=== PATIENT | female | born 1970 | race Caucasian/White ===

== ENCOUNTER 2017-09-04 20:28 | Inpatient (IN) | payer SELFPAY ==
[2017-09-04 23:54] LABS: CKMB 1.1 ng/mL (0-6.6); Troponin I Less than 0.010 ng/mL (< 0.028)
[2017-09-04] MEDS ORDERED: Morphine 4 MG/ML VIAL ONE (23:54)
[2017-09-05] MEDS ORDERED: cefTRIAXone\\ROCEPHIN 1 GM VIAL ONE (01:39)
[2017-09-05] MEDS ORDERED: metroNIDAZOLE 250 MG TAB ONE (01:42)
[2017-09-05 02:36] VITALS: BMI 37.2
[2017-09-05] MEDS ORDERED: Acetaminophen 325 MG TAB PO PRN (02:37)
[2017-09-05] MEDS ORDERED: Dextrose 5 %-0.45 % NaCl 1,000 ML IV SCH (02:45)
[2017-09-05] MEDS: Ondansetron HCl/PF 4 MG/2 ML Vial SLOW IVP PRN ×2 (03:26→20:28)
[2017-09-05] MEDS ORDERED: Acetaminophen 650 MG Suppository PR PRN (07:10)
[2017-09-05] MEDS: Sodium Chloride 0.9% 1,000 ML IV SCH ×4 (07:47→21:03)
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
[2017-09-05] MEDS: Enoxaparin Sodium 40 MG/0.4 ML SYRINGE SC SCH (09:00)
[2017-09-05] MEDS: Nicotine 21 MG PATCH TD SCH (09:00)
[2017-09-05] MEDS: metroNIDAZOLE 500 MG in Premix Bag 1 BAG IVPB SCH ×2 (09:01→17:27)
--- NOTE | 2017-09-05 09:49 | RAD ---
PORTABLE AP CHEST: Date: 09/04/17 HISTORY: Upper abdominal pain. COMPARISON: 12/12/10. FINDINGS: Cardiac silhouette and pulmonary vasculature within normal limits for the portable technique of the franki son. The lungs are clear. There has been no interval change from the prior study. IMPRESSION: No acute cardiopulmonary process. POS: [facility]
[2017-09-05] MEDS ORDERED: Loperamide HCl 2 MG CAP PO SCH (17:30)
[2017-09-05] MEDS: Acetaminophen 325 MG TAB PO PRN (17:38)
[2017-09-06] MEDS: cefTRIAXone\\ROCEPHIN 1 GM in Sodium Chloride 0.9% 100 ML IVPB SCH (01:30)
[2017-09-06] MEDS ORDERED: cefTRIAXone\\ROCEPHIN 1 GM in Sodium Chloride 0.9% 100 ML IVPB SCH (02:00)
[2017-09-06] MEDS: metroNIDAZOLE 500 MG in Premix Bag 1 BAG IVPB SCH ×3 (02:06→18:28)
[2017-09-06 05:38] LABS: #Basophils 0.1 thou/uL (0.0-0.2); #Eosinphils 0.2 thou/uL (0.0-0.7); #Lymphocytes 1.6 thou/uL (1.20-3.40); #Monocytes 0.5 thou/uL (0.11-0.59); #Neutrophils 3.5 thou/uL (1.40-6.50); %Basophils 1.1 % (0.0-1.0); %Eosinophils 4.1 % (0.0-10.0); %Lymphocytes 26.6 % (21.0-51.0); %Monocytes 9.1 % (0.0-10.0); Hemoglobin 10.8 g/dL (12.0-16.0); Mean Corpuscular Hemoglobin 27.4 pg (27.0-31.0); Mean Corpuscular Volume 83.2 fL (78.0-98.0); Platelet Count 183 thou/uL (130-400); RBC Distribution Width 15.3 % (11.5-14.5); Red Blood Cell (RBC) Count 3.95 mill/uL (4.20-5.40)
[2017-09-06 05:46] LABS: Anion Gap 13 mmol/L (10-20); BUN (Urea Nitrogen) Less than 4 mg/dL (7.0-18.7); Calc. Creatinine Clearance 157 mL/min (70-130); Calcium 7.9 mg/dL (7.8-10.44); Carbon Dioxide 19 mmol/L (22-29); Chloride 112 mmol/L (98-107); Estimated GFR-MDRD Greater than 90; Glucose 103 mg/dL (70-105); Potassium 3.6 mmol/L (3.5-5.1); Sodium 140 mmol/L (136-145)
[2017-09-06] MEDS: Sodium Chloride 0.9% 1,000 ML IV SCH ×3 (07:16→22:16)
[2017-09-06 08:43] LABS: ALT (SGPT) 14 U/L (8-55); AST (SGOT) 12 U/L (5-34); Albumin 3.4 g/dL (3.5-5.0); Alkaline Phosphatase 71 U/L (40-150); Bilirubin, Direct 0.1 mg/dL (0.1-0.3); Bilirubin, Total 0.2 mg/dL (0.2-1.2); Protein, Total 5.9 g/dL (6.0-8.3)
[2017-09-06] MEDS: Acetaminophen 325 MG TAB PO PRN ×2 (08:51→16:13)
[2017-09-06] MEDS: Nicotine 21 MG PATCH TD SCH ×2 (08:52→09:45)
[2017-09-06] MEDS: Enoxaparin Sodium 40 MG/0.4 ML SYRINGE SC SCH (08:52)
--- NOTE | 2017-09-06 14:42 | PDOC.PN ---
- Subjective Encounter Start Date: 09/06/17 Encounter Start Time: 07:20 Pt seen for followup re: enterocolitis. Continues to have diarrhea. Reports multiple episodes of nausea and vomiting overnight. No fevers or chills. Reports RUQ pain. - Objective MAR Reviewed: Yes Vital Signs & Weight: Vital Signs (12 hours) Temp Pulse Resp BP BP Pulse Ox 09/06/17 11:59 98.5 F 77 20 97/59 L 95 09/06/17 07:52 98.8 F 79 20 96/47 L 98 09/06/17 07:40 98.8 F 79 20 09/06/17 04:00 98.0 F 82 18 112/52 L 99 Weight Admit Weight 210 lb 5 oz Weight 210 lb 5 oz I&O: 09/05/17 09/06/17 09/07/17 06:59 06:59 06:59 Intake Total 400 2566 1 Balance 400 2566 1 Result Diagrams: 09/06/17 05:21 09/06/17 05:21 Additional Labs: Labs reviewed by me Phys Exam - Physical Examination Obese HEENT: moist MMs, sclera anicteric, oral pharynx no lesions, 2+ tonsils Neck: no nodes, no JVD, supple, full ROM Respiratory: no wheezing, no rales, no rhonchi, clear to auscultation bilateral Cardiovascular: RRR, no rub S1, S2 Gastrointestinal: soft, positive bowel sounds distention, mild RUQ tenderness, no guarding or rigidity Neurological: moves all 4 limbs Psychiatric: normal affect, A&O x 3 Dx/Plan (1) Enterocolitis Code(s): K52.9 - NONINFECTIVE GASTROENTERITIS AND COLITIS, UNSPECIFIED Status : Acute Comment: stool culture pending, pt continues to be symptomatic continue antibiotics for now (2) Nausea and vomiting Code(s): R11.2 - NAUSEA WITH VOMITING, UNSPECIFIED Status: Acute Comment: PRN antiemetics (3) Diarrhea Code(s): R19.7 - DIARRHEA, UNSPECIFIED Status: Acute Comment: on PRN Imodium (4) Tobacco abuse Code(s): Z72.0 - TOBACCO USE Status: Chronic Comment: nicotine replacement therapy - Plan continue antibiotics, out of bed/ambulate * . Likely home later today or tomorrow Review of Systems - Review of Systems Constitutional: weakness. negative: fever, chills, sweats, malaise Respiratory: negative: Cough, Shortness of Breath, SOB with Excertion, Pleuritic Pain, Wheezing Cardiovascular: negative: chest pain, palpitations, orthopnea, paroxysmal nocturnal dyspnea, edema, light headedness Gastrointestinal: Nausea, Vomiting, Abdominal Pain, Diarrhea. negative: Constipation, Melena, Hematochezia Genitourinary: negative: Dysuria, Frequency, Incontinence, Hematuria, Retention Skin: negative: Rash, Lesions, Gopi, Bruising - Medications/Allergies Allergies/Adverse Reactions: Allergies Allergy/AdvReac Type Severity Reaction Status Date / Time latex Allergy Verified 09/05/17 03:14 Medications: Current Medications Acetaminophen (Tylenol) 650 mg PO Q4H PRN PRN Reason: Headache/Fever or Pain Last Admin: 09/06/17 08:51 Dose: 650 mg Acetaminophen (Tylenol) 650 mg MS Q4H PRN PRN Reason: Headache/Fever or Pain Enoxaparin Sodium (Lovenox) 40 mg SC 0900 [facility] Last Admin: 09/06/17 08:52 Dose: 40 mg Metronidazole 500 mg/ Device 100 mls @ 100 mls/hr IVPB 0200,1000,1800 [facility] Last Admin: 09/06/17 10:31 Dose: 100 mls Sodium Chloride (Normal Saline 0.9%) 1,000 mls @ 100 mls/hr IV .Q10H [facility] Last Admin: 09/06/17 08:55 Dose: 1,000 mls Ceftriaxone Sodium 1 gm/ (Sodium Chloride) 100 mls @ 200 mls/hr IVPB 0100 [facility] Last Admin: 09/06/17 01:30 Dose: 100 mls Loperamide HCl (Imodium) 2 mg PO PRN PRN PRN Reason: Diarrhea/Loose Stools Morphine Sulfate (Morphine) 2 mg SLOW IVP Q4H PRN PRN Reason: Pain Last Admin: 09/06/17 14:21 Dose: 2 mg Nicotine (Nicoderm Patch) 21 mg TD Q24HR [facility] Last Admin: 09/06/17 09:45 Dose: 21 mg Ondansetron HCl (Zofran) 4 mg SLOW IVP Q4H PRN PRN Reason: Nausea/Vomiting Last Admin: 09/05/17 20:28 Dose: 4 mg Ondansetron HCl (Zofran Odt) 4 mg SL Q4H PRN PRN Reason: Nausea/Vomiting Sodium Chloride (Flush - Normal Saline) 10 ml IVF Q12HR ANGY Last Admin: 09/06/17 08:52 Dose: Not Given Sodium Chloride (Flush - Normal Saline) 10 ml IVF PRN PRN PRN Reason: Saline Flush
[2017-09-06] MEDS: Ondansetron HCl/PF 4 MG/2 ML Vial SLOW IVP PRN (18:27)
[2017-09-06] MEDS: Loperamide HCl 2 MG CAP PO PRN (18:33)
[2017-09-07] MEDS: cefTRIAXone\\ROCEPHIN 1 GM in Sodium Chloride 0.9% 100 ML IVPB SCH (01:30)
[2017-09-07] MEDS: metroNIDAZOLE 500 MG in Premix Bag 1 BAG IVPB SCH ×3 (02:16→20:26)
[2017-09-07] MEDS: Nicotine 21 MG PATCH TD SCH (07:29)
[2017-09-07] MEDS: Enoxaparin Sodium 40 MG/0.4 ML SYRINGE SC SCH (07:30)
[2017-09-07] MEDS: Ondansetron ODT 4 MG TAB SL PRN ×3 (07:35→21:09)
[2017-09-07] MEDS: Sodium Chloride 0.9% 1,000 ML IV SCH ×2 (09:52→21:11)
[2017-09-07] MEDS: Acetaminophen 325 MG TAB PO PRN (09:57)
[2017-09-07 17:43] LABS: Acetaminophen Less than 6.0 mcg/mL (10.0-30.0); Alcohol Less than 10 mg/dL (Less than 10); Salicylate Less than 8.0 mg/dL (15.0-30.0)
[2017-09-07] MEDS: traMADol HCl 50 MG TAB PO PRN (20:32)
--- NOTE | 2017-09-07 23:01 | PDOC.PN ---
- Subjective Encounter Start Date: 09/07/17 Encounter Start Time: 19:00 Subjective: nsg notes rev elton ovn c/o persistent and progressive abd pain that was orig -: more localized and now is throughout her abd. intermittent and "waves" of -: pain. no prior sim issues. fhx of mother with "colitis" - Objective Vital Signs & Weight: Vital Signs (12 hours) Temp Pulse Resp BP BP Pulse Ox 09/07/17 20:00 98.3 F 69 16 09/07/17 19:37 98.3 F 16 114/55 L 96 09/07/17 16:00 99 F 63 16 118/61 100 09/07/17 14:00 98 F 73 22 H 133/67 97 Weight Admit Weight 210 lb 5 oz Weight 210 lb 5 oz I&O: 09/06/17 09/07/17 09/08/17 06:59 06:59 06:59 Intake Total 2566 1653 415.5 Balance 2566 1653 415.5 Result Diagrams: 09/06/17 05:21 09/06/17 05:21 Phys Exam - Physical Examination lying on the hospital bed HEENT: PERRLA, moist MMs Respiratory: no wheezing, no rales, no rhonchi, clear to auscultation bilateral Cardiovascular: RRR, no significant murmur, no rub Gastrointestinal: soft, positive bowel sounds ttp throughout all quadrants Musculoskeletal: no edema, pulses present Neurological: moves all 4 limbs Psychiatric: normal affect, A&O x 3 Dx/Plan - Plan cont current plan of care (1) Enterocolitis Code(s): K52.9 - NONINFECTIVE GASTROENTERITIS AND COLITIS, UNSPECIFIED Status : Acute Comment: stool culture pending, pt continues to be symptomatic continue antibiotics for now supportive mgmt r/o pancreatitis, repeat CMP does have persistent diarrhea (2) Nausea and vomiting Code(s): R11.2 - NAUSEA WITH VOMITING, UNSPECIFIED Status: Acute Comment: PRN antiemetics (3) Diarrhea Code(s): R19.7 - DIARRHEA, UNSPECIFIED Status: Acute Comment: on PRN Imodium (4) Tobacco abuse Code(s): Z72.0 - TOBACCO USE Status: Chronic Comment: nicotine replacement therapy Review of Systems - Medications/Allergies Allergies/Adverse Reactions: Allergies Allergy/AdvReac Type Severity Reaction Status Date / Time latex Allergy Verified 09/05/17 03:14 Medications: Current Medications Acetaminophen (Tylenol) 650 mg PO Q4H PRN PRN Reason: Headache/Fever or Pain Last Admin: 09/07/17 09:57 Dose: 650 mg Acetaminophen (Tylenol) 650 mg UT Q4H PRN PRN Reason: Headache/Fever or Pain Enoxaparin Sodium (Lovenox) 40 mg SC 0900 [facility] Last Admin: 09/07/17 07:30 Dose: 40 mg Metronidazole 500 mg/ Device 100 mls @ 100 mls/hr IVPB 0200,1000,1800 [facility] Last Admin: 09/07/17 20:26 Dose: 100 mls Sodium Chloride (Normal Saline 0.9%) 1,000 mls @ 100 mls/hr IV .Q10H [facility] Last Admin: 09/07/17 21:11 Dose: 1,000 mls Ceftriaxone Sodium 1 gm/ (Sodium Chloride) 100 mls @ 200 mls/hr IVPB 0100 [facility] Last Admin: 09/07/17 01:30 Dose: 100 mls Loperamide HCl (Imodium) 2 mg PO PRN PRN PRN Reason: Diarrhea/Loose Stools Last Admin: 09/06/17 18:33 Dose: 2 mg Morphine Sulfate (Morphine) 1 mg SLOW IVP Q4H PRN PRN Reason: Pain Last Admin: 09/07/17 21:08 Dose: 1 mg Nicotine (Nicoderm Patch) 21 mg TD Q24HR [facility] Last Admin: 09/07/17 07:29 Dose: 21 mg Ondansetron HCl (Zofran) 4 mg SLOW IVP Q4H PRN PRN Reason: Nausea/Vomiting Last Admin: 09/06/17 18:27 Dose: 4 mg Ondansetron HCl (Zofran Odt) 4 mg SL Q4H PRN PRN Reason: Nausea/Vomiting Last Admin: 09/07/17 21:09 Dose: 4 mg Sodium Chloride (Flush - Normal Saline) 10 ml IVF Q12HR [facility] Last Admin: 09/07/17 21:38 Dose: Not Given Sodium Chloride (Flush - Normal Saline) 10 ml IVF PRN PRN PRN Reason: Saline Flush Tramadol HCl (Ultram) 50 mg PO Q6H PRN PRN Reason: Pain Last Admin: 09/07/17 20:32 Dose: 50 mg
[2017-09-08] MEDS: cefTRIAXone\\ROCEPHIN 1 GM in Sodium Chloride 0.9% 100 ML IVPB SCH (01:05)
[2017-09-08] MEDS: metroNIDAZOLE 500 MG in Premix Bag 1 BAG IVPB SCH ×3 (01:46→17:43)
[2017-09-08] MEDS: Loperamide HCl 2 MG CAP PO PRN ×2 (05:08→13:50)
[2017-09-08 06:40] LABS: #Basophils 0.1 thou/uL (0.0-0.2); #Eosinphils 0.2 thou/uL (0.0-0.7); #Lymphocytes 1.9 thou/uL (1.20-3.40); #Monocytes 0.7 thou/uL (0.11-0.59); #Neutrophils 7.1 thou/uL (1.40-6.50); %Basophils 0.8 % (0.0-1.0); %Eosinophils 2.2 % (0.0-10.0); %Lymphocytes 18.9 % (21.0-51.0); %Monocytes 6.8 % (0.0-10.0); %Neutrophils 71.4 % (42.0-75.0); Hemoglobin 11.5 g/dL (12.0-16.0); Mean Corpuscular HGB CONC 33.9 g/dL (32.0-36.0); Mean Corpuscular Hemoglobin 28.1 pg (27.0-31.0); Mean Corpuscular Volume 82.7 fL (78.0-98.0); Mean Platelet Volume 8.1 fL (7.4-10.4); Platelet Count 204 thou/uL (130-400); RBC Distribution Width 14.9 % (11.5-14.5); Red Blood Cell (RBC) Count 4.11 mill/uL (4.20-5.40); White Blood Cell (WBC) Count 9.9 thou/uL (4.8-10.8)
[2017-09-08 07:02] LABS: ALT (SGPT) 22 U/L (8-55); AST (SGOT) 22 U/L (5-34); Albumin 3.5 g/dL (3.5-5.0); Alkaline Phosphatase 76 U/L (40-150); Anion Gap 11 mmol/L (10-20); BUN (Urea Nitrogen) 4 mg/dL (7.0-18.7); Bilirubin, Total 0.2 mg/dL (0.2-1.2); Calc. Creatinine Clearance 159 mL/min (70-130); Calcium 8.4 mg/dL (7.8-10.44); Carbon Dioxide 23 mmol/L (22-29); Chloride 109 mmol/L (98-107); Estimated GFR-MDRD Greater than 90; Globulin 2.6 g/dL (2.4-3.5); Glucose 95 mg/dL (70-105); Lipase 10 U/L (8-78); Potassium 3.5 mmol/L (3.5-5.1); Protein, Total 6.1 g/dL (6.0-8.3); Sodium 139 mmol/L (136-145)
[2017-09-08] MEDS: Enoxaparin Sodium 40 MG/0.4 ML SYRINGE SC SCH (08:47)
[2017-09-08] MEDS: Nicotine 21 MG PATCH TD SCH (08:49)
[2017-09-08] MEDS: traMADol HCl 50 MG TAB PO PRN ×3 (08:51→20:52)
[2017-09-08] MEDS: Sodium Chloride 0.9% 1,000 ML IV SCH ×3 (10:07→22:36)
[2017-09-08] MEDS: Ketorolac Tromethamine 30 MG/ML VIAL IVP PRN ×3 (10:08→22:39)
--- NOTE | 2017-09-08 14:21 | PDOC.PN ---
- Subjective Encounter Start Date: 09/08/17 Encounter Start Time: 07:20 Pt seen for followup re: enterocolitis. Reports ongoing nausea and vomiting, also reports diarrhea. No fevers or chills. - Objective MAR Reviewed: Yes Vital Signs & Weight: Vital Signs (12 hours) Temp Pulse Resp BP Pulse Ox 09/08/17 12:00 97.9 F 69 20 116/70 96 09/08/17 10:00 98.8 F 67 16 98 09/08/17 08:00 98.8 F 67 16 103/59 L 98 Weight Admit Weight 210 lb 5 oz Weight 210 lb 5 oz I&O: 09/07/17 09/08/17 09/09/17 06:59 06:59 06:59 Intake Total 1653 966.5 7 Balance 1653 966.5 7 Result Diagrams: 09/08/17 06:33 09/08/17 06:33 Additional Labs: Labs reviewed by me Phys Exam - Physical Examination Obese HEENT: moist MMs, sclera anicteric, oral pharynx no lesions, 2+ tonsils Neck: no nodes, no JVD, supple, full ROM Respiratory: no wheezing, no rales, no rhonchi, clear to auscultation bilateral Cardiovascular: RRR, no rub Gastrointestinal: soft, non-tender, no distention, positive bowel sounds Neurological: moves all 4 limbs Psychiatric: normal affect, A&O x 3 Dx/Plan (1) Enterocolitis Code(s): K52.9 - NONINFECTIVE GASTROENTERITIS AND COLITIS, UNSPECIFIED Status : Acute Comment: Pt continues to be symptomatic with ongoing nausea, vomiting and diarrhea, unable to tolerate oral diet or medications, needs ongoing IV fluids for hydration. Will change patient's status to inpatient. (2) Nausea and vomiting Code(s): R11.2 - NAUSEA WITH VOMITING, UNSPECIFIED Status: Acute Comment: PRN zofran IV (3) Diarrhea Code(s): R19.7 - DIARRHEA, UNSPECIFIED Status: Acute Comment: continue PRN Imodium (4) Tobacco abuse Code(s): Z72.0 - TOBACCO USE Status: Chronic Comment: on nicotine replacement therapy - Plan * . Review of Systems - Review of Systems Constitutional: negative: fever, chills, sweats, weakness, malaise Respiratory: negative: Cough, Dry, Shortness of Breath, Hemoptysis, SOB with Excertion, Pleuritic Pain, Sputum, Wheezing Cardiovascular: negative: chest pain, palpitations, orthopnea, paroxysmal nocturnal dyspnea, edema, light headedness Gastrointestinal: Nausea, Vomiting, Abdominal Pain, Diarrhea. negative: Constipation, Melena, Hematochezia Genitourinary: negative: Dysuria, Frequency, Incontinence, Hematuria, Retention Skin: negative: Rash, Lesions, Gopi, Bruising - Medications/Allergies Allergies/Adverse Reactions: Allergies Allergy/AdvReac Type Severity Reaction Status Date / Time latex Allergy Verified 09/05/17 03:14 Medications: Current Medications Acetaminophen (Tylenol) 650 mg PO Q4H PRN PRN Reason: Headache/Fever or Pain Last Admin: 09/07/17 09:57 Dose: 650 mg Acetaminophen (Tylenol) 650 mg CO Q4H PRN PRN Reason: Headache/Fever or Pain Enoxaparin Sodium (Lovenox) 40 mg SC 0900 [facility] Last Admin: 09/08/17 08:47 Dose: 40 mg Metronidazole 500 mg/ Device 100 mls @ 100 mls/hr IVPB 0200,1000,1800 [facility] Last Admin: 09/08/17 10:27 Dose: 100 mls Sodium Chloride (Normal Saline 0.9%) 1,000 mls @ 100 mls/hr IV .Q10H [facility] Last Admin: 09/08/17 10:07 Dose: 1,000 mls Ceftriaxone Sodium 1 gm/ (Sodium Chloride) 100 mls @ 200 mls/hr IVPB 0100 [facility] Last Admin: 09/08/17 01:05 Dose: 100 mls Ketorolac Tromethamine (Toradol) 15 mg IVP Q6H PRN PRN Reason: Pain Stop: 09/13/17 08:24 Last Admin: 09/08/17 10:08 Dose: 15 mg Loperamide HCl (Imodium) 2 mg PO PRN PRN PRN Reason: Diarrhea/Loose Stools Last Admin: 09/08/17 13:50 Dose: 2 mg Nicotine (Nicoderm Patch) 21 mg TD Q24HR [facility] Last Admin: 09/08/17 08:49 Dose: 21 mg Ondansetron HCl (Zofran) 4 mg SLOW IVP Q4H PRN PRN Reason: Nausea/Vomiting Last Admin: 09/06/17 18:27 Dose: 4 mg Ondansetron HCl (Zofran Odt) 4 mg SL Q4H PRN PRN Reason: Nausea/Vomiting Last Admin: 09/07/17 21:09 Dose: 4 mg Sodium Chloride (Flush - Normal Saline) 10 ml IVF Q12HR ANGY Last Admin: 09/08/17 08:53 Dose: Not Given Sodium Chloride (Flush - Normal Saline) 10 ml IVF PRN PRN PRN Reason: Saline Flush Tramadol HCl (Ultram) 50 mg PO Q6H PRN PRN Reason: Pain Last Admin: 09/08/17 08:51 Dose: 50 mg
[2017-09-08] MEDS: Dicyclomine 10 MG CAP PO PRN (20:01)
[2017-09-08] MEDS: Ondansetron ODT 4 MG TAB SL PRN (20:05)
[2017-09-08] MEDS: Melatonin 3 MG TAB PO PRN (20:53)
[2017-09-08] MEDS ORDERED: Mag-Al 1200 mg/1200 mg/30 ML UDCUP PO PRN (21:40)
[2017-09-09] MEDS: cefTRIAXone\\ROCEPHIN 1 GM in Sodium Chloride 0.9% 100 ML IVPB SCH (00:25)
--- NOTE | 2017-09-09 01:11 | CON ---
DATE OF CONSULTATION: 09/08/2017 REASON FOR CONSULTATION: Abdominal pain and diarrhea. HISTORY OF PRESENT ILLNESS: Ms. Zuniga is a 46-year-old female who was admitted to the hospital on the with abdominal pain and diarrhea. She states she became ill back about a week ago with abrupt onset of nausea and some vomiting and then diarrhea. Initially, diarrhea was not that loose, but the n by this Monday, it became very loose and was watery. It was without any bleeding. She had quite a bit of crampy abdominal pain with this, initially across the upper abdomen and then throughout the w hole periumbilical area. She is still going about 3-4 times a day. She has no blood in her stools. She had no blood in her emesis. She has not really vomited anymore. She had some chills and low-gr bj temperature at home, but no overt fever. She denies any sick contacts, any recent antibiotics. She has not traveled recently. She specifically denies eating bagged salads or any recent fresh frui ts, but again it was about a week ago that she got sick. She denies any symptoms like this in the ri st. She denies any recent use of pain medications or problems with withdrawing from pain medicines. REVIEW OF SYSTEMS: Negative for rashes, myalgias, and arthralgias. Negative for chronic GI illnesse s. Negative for melena, hematochezia, hematemesis, dysphagia, odynophagia, weight loss. Respiratory , cardiac, , neurologic review of systems are all negative. PAST MEDICAL HISTORY: History of depression and bipolar. PAST SURGICAL HISTORY: Right nephrectomy for nephrolithiasis, bulla removed from the face, tubal lig ation. SOCIAL HISTORY: The patient smokes half pack of cigarettes a day. She does not drink alcohol. She denies drug use. 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 FAMILY HISTORY: Negative for coronary disease, colorectal cancer, or inflammatory bowel disease. ALLERGIES: LATEX. MEDICATIONS AT HOME: Seroquel. PRESENT MEDICATIONS HERE IN THE HOSPITAL: Tylenol, Rocephin, levofloxacin, Toradol, Imodium, melaton in, Flagyl, NicoDerm, Zofran, normal saline at 100, tramadol. PHYSICAL EXAMINATION: GENERAL: She is sitting in bed. She is very pleasant. VITAL SIGNS: Temperature is 98.4, pulse 68, blood pressure 125/67. HEENT: Mucous membranes are pink and moist. She is little bit overweight. Conjunctivae and sclerae are clear. She has got no oral ulcers. She is missing a few teeth. NECK: Supple without any adenopathy. LUNGS: Clear. HEART: Regular rate and rhythm. ABDOMEN: Soft and nontender without rebound or guarding. Slightly protuberant and she has got some extra pannus on her, but it is nontender and it is not tight. EXTREMITIES: No clubbing, cyanosis, or edema. SKIN: Without rash or lesions. There are no sores. LABORATORY DATA: White count was 14.3 on presentation on , is 9.9 today; hemoglobin is 11.5, pamela telet count is 204. Sodium 139 with a BUN and creatinine of 4 and 0.68. It was 12 and 0.76 on admis saray. Potassium is 3.5. Liver function tests are normal with an albumin of 3.5, AST and ALT of 22 a nd 22, lipase is 10. test was negative on 09/04/2017. Urine showed trace blood on admissi on. Plasma alcohol, acetaminophen, and salicylates are all negative on admission. IMAGING: Thus far, a CAT scan of the abdomen and pelvis on 09/04/2017 was negative except for some m ild thickening of distal gastric antrum, small focal fatty infiltration, nonspecific fluid distention with looped small bowel consistent with enteritis, and right nephrectomy. Ultrasound of the abdomen the same day showed normal gallbladder and fatty liver. ASSESSMENT: Ms. Zuniga sounds like she had acute gastritis with abrupt onset nausea, vomiting, watery diarrhea and several other patients admitted to the hospital most recently. Stool cultures have been negative. One consideration would be Cyclospora, as there has been an outbreak of this in [facility]. RECOMMENDATIONS: 1. Continue liquid diet. 2. Continue hydration. 3. I think tomorrow her antibiotics can be discontinued if she is growing nothing in her cultures an d she will have three days of antibiotics at that time. Additionally, the Flagyl can lead to more cr amping abdominal discomfort in some patients. We would continue to support with IV fluids, advance d iet as tolerated avoiding lactose depending on how she does.
[2017-09-09] MEDS: metroNIDAZOLE 500 MG in Premix Bag 1 BAG IVPB SCH (01:53)
[2017-09-09] MEDS: Acetaminophen 325 MG TAB PO PRN ×2 (01:58→23:05)
[2017-09-09] MEDS: traMADol HCl 50 MG TAB PO PRN ×3 (03:09→17:40)
[2017-09-09] MEDS: Ketorolac Tromethamine 30 MG/ML VIAL IVP PRN ×3 (07:20→20:21)
[2017-09-09] MEDS: Enoxaparin Sodium 40 MG/0.4 ML SYRINGE SC SCH (07:24)
[2017-09-09] MEDS: Sodium Chloride 0.9% 1,000 ML IV SCH ×2 (10:43→20:28)
--- NOTE | 2017-09-09 12:37 | EKG ---
Test Reason : ABD PAIN Blood Pressure : / mmHG Vent. Rate : 091 BPM Atrial Rate : 091 BPM P-R Int : 158 ms QRS Dur : 080 ms QT Int : 352 ms P-R-T Axes : 030 011 016 degrees QTc Int : 432 ms Normal sinus rhythm Low voltage QRS Cannot rule out Anterior infarct , age undetermined Abnormal ECG Confirmed by COLETTE WELLS DO ([id number]), editor greeting card JANES MEAD ([id number]) on 09/09/2017 12:36:50 PM Referred By: PRISCILLA Confirmed By:COLETTE WELLS DO
[2017-09-09] MEDS: Dicyclomine 10 MG CAP PO PRN (12:51)
--- NOTE | 2017-09-09 14:08 | PDOC.PN ---
- Subjective Encounter Start Date: 09/09/17 Encounter Start Time: 07:20 Pt seen for followup re: enterocolitis. Abdo pain better. Still has nausea, vomiting and diarrhea. - Objective MAR Reviewed: Yes Vital Signs & Weight: Vital Signs (12 hours) Temp Pulse Resp BP BP Pulse Ox 09/09/17 12:00 98.0 F 69 16 121/60 94 L 09/09/17 08:00 97.9 F 64 16 119/66 94 L 09/09/17 05:27 97 09/09/17 03:29 97.9 F 64 12 122/58 L 97 Weight Admit Weight 210 lb 5 oz Weight 210 lb 5 oz I&O: 09/08/17 09/09/17 09/10/17 06:59 06:59 06:59 Intake Total 966.5 3337 Balance 966.5 3337 Result Diagrams: 09/08/17 06:33 09/08/17 06:33 Additional Labs: Labs reviewed by me Phys Exam - Physical Examination Obesity HEENT: moist MMs, sclera anicteric, oral pharynx no lesions, 2+ tonsils Neck: no nodes, no JVD, supple, full ROM Respiratory: no wheezing, no rales, no rhonchi, clear to auscultation bilateral Cardiovascular: RRR, no rub S1, s2 Gastrointestinal: soft, non-tender, positive bowel sounds Neurological: moves all 4 limbs Psychiatric: normal affect, A&O x 3 Dx/Plan (1) Enterocolitis Code(s): K52.9 - NONINFECTIVE GASTROENTERITIS AND COLITIS, UNSPECIFIED Status : Acute Comment: Pt mildly improved today, needs ongoing IV fluids for hydration. Will discontinue antibiotics. (2) Nausea and vomiting Code(s): R11.2 - NAUSEA WITH VOMITING, UNSPECIFIED Status: Acute Comment: continue PRN zofran IV (3) Diarrhea Code(s): R19.7 - DIARRHEA, UNSPECIFIED Status: Acute Comment: continue PRN Imodium (4) Tobacco abuse Code(s): Z72.0 - TOBACCO USE Status: Chronic Comment: continue nicotine patch - Plan * . Review of Systems - Review of Systems Constitutional: negative: fever, chills, sweats, weakness, malaise Cardiovascular: negative: chest pain, palpitations, orthopnea, paroxysmal nocturnal dyspnea, edema, light headedness Gastrointestinal: Nausea, Vomiting, Abdominal Pain, Diarrhea. negative: Constipation, Melena, Hematochezia Genitourinary: negative: Dysuria, Frequency, Incontinence, Hematuria, Retention Musculoskeletal: negative: Neck Pain, Shoulder Pain, Arm Pain, Back Pain, Hand Pain, Leg Pain, Foot Pain - Medications/Allergies Allergies/Adverse Reactions: Allergies Allergy/AdvReac Type Severity Reaction Status Date / Time latex Allergy Verified 09/05/17 03:14 Medications: Current Medications Acetaminophen (Tylenol) 650 mg PO Q4H PRN PRN Reason: Headache/Fever or Pain Last Admin: 09/09/17 01:58 Dose: 650 mg Acetaminophen (Tylenol) 650 mg MO Q4H PRN PRN Reason: Headache/Fever or Pain Al Hydroxide/Mg Hydroxide (Maalox) 30 ml PO Q6H PRN PRN Reason: Heartburn or Indigestion Dicyclomine HCl (Bentyl) 10 mg PO QIDPRN PRN PRN Reason: GI Cramping Last Admin: 09/09/17 12:51 Dose: 10 mg Enoxaparin Sodium (Lovenox) 40 mg SC 0900 [facility] Last Admin: 09/09/17 07:24 Dose: 40 mg Sodium Chloride (Normal Saline 0.9%) 1,000 mls @ 100 mls/hr IV .Q10H [facility] Last Admin: 09/09/17 10:43 Dose: 1,000 mls Ketorolac Tromethamine (Toradol) 15 mg IVP Q6H PRN PRN Reason: Pain Stop: 09/13/17 08:24 Last Admin: 09/09/17 07:20 Dose: 15 mg Loperamide HCl (Imodium) 2 mg PO PRN PRN PRN Reason: Diarrhea/Loose Stools Last Admin: 09/08/17 13:50 Dose: 2 mg Melatonin (Melatonin) 3 mg PO HS PRN PRN Reason: Insomnia Last Admin: 09/08/17 20:53 Dose: 3 mg Nicotine (Nicoderm Patch) 21 mg TD Q24HR ANGY Last Admin: 09/08/17 08:49 Dose: 21 mg Ondansetron HCl (Zofran) 4 mg SLOW IVP Q4H PRN PRN Reason: Nausea/Vomiting Last Admin: 09/06/17 18:27 Dose: 4 mg Ondansetron HCl (Zofran Odt) 4 mg SL Q4H PRN PRN Reason: Nausea/Vomiting Last Admin: 09/08/17 20:05 Dose: 4 mg Sodium Chloride (Flush - Normal Saline) 10 ml IVF Q12HR ANGY Last Admin: 09/09/17 07:20 Dose: 10 ml Sodium Chloride (Flush - Normal Saline) 10 ml IVF PRN PRN PRN Reason: Saline Flush Tramadol HCl (Ultram) 50 mg PO Q6H PRN PRN Reason: Pain Last Admin: 09/09/17 09:58 Dose: 50 mg
[2017-09-09] MEDS: Nicotine 21 MG PATCH TD SCH (14:36)
[2017-09-09] MEDS: Ondansetron ODT 4 MG TAB SL PRN (18:16)
--- NOTE | 2017-09-09 19:34 | PRG ---
DATE OF SERVICE: 09/09/2017 SUBJECTIVE: Ms. Zuniga is no longer having vomiting. She had 1 loose stool today. She still complain s of abdominal pain. She tried the Bentyl last night, she took it again and she seems to be do ing fine with that. MEDICATIONS: Tylenol, Maalox, Lovenox, Toradol, Imodium, Nicoderm patch, Zofran. PHYSICAL EXAMINATION: VITAL SIGNS: Temperature is 98, pulse 69, blood pressure is 121/61, respirations 16. ABDOMEN: Soft and nontender. There is no rebound or guarding. LABORATORY STUDIES: No labs today. Final stool culture, moderate normal kaykay, C. difficile, negati ve Campylobacter, Shiga negative. ASSESSMENT: Diarrheal illness. Agree with stopping metronidazole and Rocephin as her cultures have been negative and she has received several days of antibiotics now. We will try to manage with the a ntispasmodics for pain. RECOMMENDATIONS: We will check stool for cyclospora if continues to have loose stool, but she seems to be improving. We can advance diet as tolerated. We will follow along with you.
[2017-09-09] MEDS: Loperamide HCl 2 MG CAP PO PRN (20:22)
[2017-09-09] MEDS: Melatonin 3 MG TAB PO PRN (20:22)
[2017-09-10] MEDS: traMADol HCl 50 MG TAB PO PRN ×4 (00:18→19:32)
[2017-09-10] MEDS: Ketorolac Tromethamine 30 MG/ML VIAL IVP PRN ×4 (02:41→20:23)
[2017-09-10] MEDS: Sodium Chloride 0.9% 1,000 ML IV SCH ×2 (06:19→20:06)
[2017-09-10] MEDS: Nicotine 21 MG PATCH TD SCH ×2 (08:11→18:34)
[2017-09-10] MEDS: Enoxaparin Sodium 40 MG/0.4 ML SYRINGE SC SCH (08:16)
[2017-09-10] MEDS: Ondansetron ODT 4 MG TAB SL PRN (08:45)
[2017-09-10 08:54] LABS: #Basophils 0.1 thou/uL (0.0-0.2); #Eosinphils 0.3 thou/uL (0.0-0.7); #Lymphocytes 2.5 thou/uL (1.20-3.40); #Monocytes 0.5 thou/uL (0.11-0.59); #Neutrophils 4.5 thou/uL (1.40-6.50); %Basophils 1.1 % (0.0-1.0); %Eosinophils 3.9 % (0.0-10.0); %Lymphocytes 31.8 % (21.0-51.0); %Monocytes 6.5 % (0.0-10.0); %Neutrophils 56.8 % (42.0-75.0); Hemoglobin 11.3 g/dL (12.0-16.0); Mean Corpuscular HGB CONC 33.2 g/dL (32.0-36.0); Mean Corpuscular Hemoglobin 27.8 pg (27.0-31.0); Mean Corpuscular Volume 83.8 fL (78.0-98.0); Mean Platelet Volume 8.5 fL (7.4-10.4); Platelet Count 214 thou/uL (130-400); RBC Distribution Width 15.2 % (11.5-14.5); Red Blood Cell (RBC) Count 4.08 mill/uL (4.20-5.40); White Blood Cell (WBC) Count 7.9 thou/uL (4.8-10.8)
[2017-09-10 09:04] LABS: Anion Gap 9 mmol/L (10-20); BUN (Urea Nitrogen) 4 mg/dL (7.0-18.7); Calc. Creatinine Clearance 148 mL/min (70-130); Calcium 8.4 mg/dL (7.8-10.44); Carbon Dioxide 24 mmol/L (22-29); Chloride 109 mmol/L (98-107); Estimated GFR-MDRD 87; Glucose 113 mg/dL (70-105); Potassium 3.4 mmol/L (3.5-5.1); Sodium 139 mmol/L (136-145)
[2017-09-10] MEDS ORDERED: Potassium Chloride 20 MEQ TAB PO SCH (11:00)
[2017-09-10] MEDS: Ondansetron HCl/PF 4 MG/2 ML Vial SLOW IVP PRN (12:31)
[2017-09-10] MEDS: Dicyclomine 10 MG CAP PO PRN (16:10)
--- NOTE | 2017-09-10 16:37 | PDOC.PN ---
- Subjective Encounter Start Date: 09/10/17 Encounter Start Time: 10:00 Pt seen for followup re: enteroolitis. Reports improement in terms of abdo pain. Nausea better, but still present. Vomiting + - Objective MAR Reviewed: Yes Vital Signs & Weight: Vital Signs (12 hours) Temp Pulse Resp BP Pulse Ox 09/10/17 16:00 98.5 F 67 119/65 94 L 09/10/17 13:09 98.7 F 75 18 119/78 94 L 09/10/17 08:00 97.8 F 72 16 127/75 95 Weight Admit Weight 210 lb 5 oz Weight 210 lb 5 oz I&O: 09/09/17 09/10/17 09/11/17 06:59 06:59 06:59 Intake Total 3337 3840 Balance 3337 3840 Result Diagrams: 09/10/17 08:35 09/10/17 08:35 Additional Labs: Labs reviewed by me Phys Exam - Physical Examination Constitutional: NAD HEENT: moist MMs, sclera anicteric, oral pharynx no lesions, 2+ tonsils Neck: no nodes, no JVD, supple, full ROM Respiratory: no wheezing, no rales, no rhonchi, clear to auscultation bilateral Cardiovascular: RRR, no rub S1, S2 Gastrointestinal: soft, positive bowel sounds distention, mild epigastric tenderness, no guarding or rigidity Neurological: moves all 4 limbs Psychiatric: normal affect, A&O x 3 Dx/Plan (1) Enterocolitis Code(s): K52.9 - NONINFECTIVE GASTROENTERITIS AND COLITIS, UNSPECIFIED Status : Acute Comment: Antibiotics were discontinued yesterday. Clinically improving. Likely home 24-48 hours (2) Nausea and vomiting Code(s): R11.2 - NAUSEA WITH VOMITING, UNSPECIFIED Status: Acute Comment: on PRN zofran IV (3) Diarrhea Code(s): R19.7 - DIARRHEA, UNSPECIFIED Status: Acute Comment: on PRN Imodium. Cyclospora smear pending, will take a few days, according to lab. (4) Tobacco abuse Code(s): Z72.0 - TOBACCO USE Status: Chronic Comment: continue nicotine patch - Plan * . Review of Systems - Review of Systems Constitutional: negative: fever, chills, sweats, weakness, malaise Cardiovascular: negative: chest pain, palpitations, orthopnea, paroxysmal nocturnal dyspnea, edema, light headedness Gastrointestinal: Nausea, Vomiting, Abdominal Pain, Diarrhea. negative: Constipation, Melena, Hematochezia Genitourinary: negative: Dysuria, Frequency, Incontinence, Hematuria, Retention Skin: negative: Rash, Lesions, Gopi, Bruising Neurological: negative: Weakness, Numbness, Incoordination, Change in Speech, Confusion, Seizures - Medications/Allergies Allergies/Adverse Reactions: Allergies Allergy/AdvReac Type Severity Reaction Status Date / Time latex Allergy Verified 09/05/17 03:14 Medications: Current Medications Acetaminophen (Tylenol) 650 mg PO Q4H PRN PRN Reason: Headache/Fever or Pain Last Admin: 09/09/17 23:05 Dose: 650 mg Acetaminophen (Tylenol) 650 mg SC Q4H PRN PRN Reason: Headache/Fever or Pain Al Hydroxide/Mg Hydroxide (Maalox) 30 ml PO Q6H PRN PRN Reason: Heartburn or Indigestion Dicyclomine HCl (Bentyl) 10 mg PO QIDPRN PRN PRN Reason: GI Cramping Last Admin: 09/10/17 16:10 Dose: 10 mg Enoxaparin Sodium (Lovenox) 40 mg SC 0900 [facility] Last Admin: 09/10/17 08:16 Dose: 40 mg Sodium Chloride (Normal Saline 0.9%) 1,000 mls @ 100 mls/hr IV .Q10H ANGY Last Admin: 09/10/17 06:19 Dose: 1,000 mls Ketorolac Tromethamine (Toradol) 15 mg IVP Q6H PRN PRN Reason: Pain Stop: 09/13/17 08:24 Last Admin: 09/10/17 14:21 Dose: 15 mg Loperamide HCl (Imodium) 2 mg PO PRN PRN PRN Reason: Diarrhea/Loose Stools Last Admin: 09/09/17 20:22 Dose: 2 mg Melatonin (Melatonin) 3 mg PO HS PRN PRN Reason: Insomnia Last Admin: 09/09/17 20:22 Dose: 3 mg Nicotine (Nicoderm Patch) 21 mg TD Q24HR ANGY Last Admin: 09/10/17 08:11 Dose: Not Given Ondansetron HCl (Zofran) 4 mg SLOW IVP Q4H PRN PRN Reason: Nausea/Vomiting Last Admin: 09/10/17 12:31 Dose: 4 mg Ondansetron HCl (Zofran Odt) 4 mg SL Q4H PRN PRN Reason: Nausea/Vomiting Last Admin: 09/10/17 08:45 Dose: 4 mg Sodium Chloride (Flush - Normal Saline) 10 ml IVF Q12HR ANGY Last Admin: 09/10/17 08:16 Dose: 10 ml Sodium Chloride (Flush - Normal Saline) 10 ml IVF PRN PRN PRN Reason: Saline Flush Tramadol HCl (Ultram) 50 mg PO Q6H PRN PRN Reason: Pain Last Admin: 09/10/17 12:34 Dose: 50 mg
[2017-09-10] MEDS: Melatonin 3 MG TAB PO PRN (20:07)
[2017-09-11] MEDS: Dicyclomine 10 MG CAP PO PRN (00:15)
--- NOTE | 2017-09-11 03:22 | PRG ---
DATE OF SERVICE: 09/10/2017 SUBJECTIVE: Ms. Zuniga is feeling better. She is eating a BRAT diet. Nausea is persistent, but the p ain is gone. She is not vomiting. Her diarrhea is gone. OBJECTIVE: VITAL SIGNS: Temperature is 97.4, pulse 72, blood pressure 127/75. ABDOMEN: Soft, nontender. GENERAL: She is smiling. LUNGS: Clear. HEART: Regular rate and rhythm. LABORATORY STUDIES: White count 7.9, hemoglobin 11.3, platelet count 214. Sodium 139, potassium 3.4 , BUN and creatinine 4 and 0.73. Micro, final culture was negative. Cyclosporine is pending. ASSESSMENT: Gastritis, resolving. Did last quite a time while it would be interesting to see if her cyclosporine comes out positive, continue antibiotics, especially with full recovery back to b aseline. Advance diet as tolerated. We will sign off. Once again, thank you for including me this evaluation.
[2017-09-11] MEDS: Ketorolac Tromethamine 30 MG/ML VIAL IVP PRN ×2 (03:57→10:29)
[2017-09-11] MEDS: Sodium Chloride 0.9% 1,000 ML IV SCH (05:56)
[2017-09-11] MEDS: traMADol HCl 50 MG TAB PO PRN ×2 (05:58→11:39)
[2017-09-11 08:08] VITALS: BP 116/66; TEMP 97.5
[2017-09-11] MEDS: Acetaminophen 325 MG TAB PO PRN (08:21)
[2017-09-11] MEDS: Nicotine 21 MG PATCH TD SCH (08:21)
[2017-09-11] MEDS: Enoxaparin Sodium 40 MG/0.4 ML SYRINGE SC SCH (08:21)
--- NOTE | 2017-09-11 12:42 | DIS ---
DATE OF ADMISSION: 09/05/2017 DATE OF DISCHARGE: 09/11/2017 DISCHARGE DIAGNOSES: 1. Enterocolitis, noninfective, improved. 2. Abdominal pain secondary to #1. 3. Nausea and vomiting secondary to #1, resolved. 4. Tobacco abuse, ongoing. CONSULTATIONS: Dr. Cortes with GI Service. PERTINENT LAB AND X-RAY FINDINGS: Potassium ranged between 3.4-3.6. LFTs within normal limits. Alb umin ranged between 3.4-4.1, lipase ranged between 10-28. CBC showed a hemoglobin ranging between 10 .8-11.5. Stool cultures including C. difficile antigen and toxin negative 09/05/2017. Abdominal ult rasound dated 09/04/2017 showed no acute process. CT of the abdomen and pelvis dated 09/04/2017 show ed mild wall thickening of the distal gastric antrum. Nonspecific fluid distention of loops of small and large bowel, mild splenomegaly. HOSPITAL COURSE: The patient was admitted to the medical floor after initially presenting with abdom inal pain, undergoing extensive evaluation including multiple abdominal imaging studies with CT findi ngs showing mild enterocolitis. The patient underwent stool evaluation showing negative findings as stated previously without dominant organism identified. The patient was evaluated by the GI service with recommendations for supportive management. The patient was initially placed on IV antibiotic th erapy after concern for infectious colitis; however, stool studies did not confirm any presence abdom inal organism. The patient received antiemetics, IV, and oral pain regimens including IV morphine thornton lfate with mild to moderate improvement in overall symptomatology. The patient was tolerating regula r oral intake and ambulating without assistance or difficulty. The patient was given education and r eassurance regarding her condition and likely this will resolve spontaneously after discharge. Karla ll, patient clinically stable. I have examined the patient and discussed followup instructions with the patient, who verbalizes understanding and agreement. The patient is ready for discharge on 09/11. DISCHARGE MEDICATIONS: 1. Proventil HFA 2 puffs inhaled q.6 hours p.r.n. 2. Bentyl 10 mg p.o. q.i.d. p.r.n. 3. Tramadol 50 mg 1 tablet p.o. q.6 hours p.r.n. pain, #30, no refills. FOLLOWUP: The patient may follow up with [facility] in [place], [place] after discharge. CONDITION ON DISCHARGE: Stable. ACTIVITY: Ad merary. DIET: Heart healthy. CODE STATUS: FULL. DISPOSITION: Home on 09/11/2017. Total time preparing and coordinating discharge is 32 minutes.
== END 2017-09-11 13:35 | disposition home or self-care (01) | DRG 392 ==
LOC: ERS 20:28 → OBSVTOIN 09-05 02:03 → ONC 09-05 02:03
PROVIDERS: ADMIT Hospitalist; ATTEND Hospitalist
DX: K52.9 Noninfective gastroenteritis and colitis, unspecified (principal); K29.70 Gastritis, unspecified, without bleeding; F17.210 Nicotine dependence, cigarettes, uncomplicated; Z90.5 Acquired absence of kidney; Z91.040 Latex allergy status; J45.909 Unspecified asthma, uncomplicated
CPT/HCPCS: 36415; 71045; 80048; 80053; 80076; 80307; 82553; 83690; 84484; 85025; 87015; 87045; 87046; 87206; 87324; 87449; 87899; 93005; 96361; 96374; 96375; A4216; J0696; J1650; J1885; J2270; J2405; J7050; Q0162

== ENCOUNTER 2018-07-04 11:53 | Outpatient (CLI) | payer OTHER ==
--- NOTE | 2018-07-04 13:41 | MRI ---
MRI OF LUMBAR SPINE: DATE: 07/04/2018. PROVIDED CLINICAL HISTORY: Acute neuropathic pain, chronic low back pain. FINDINGS: Five lumbar vertebral bodies are assumed. Lumbar alignment appears normal. Vertebral body heights a ppear preserved. No focal concerning regional marrow signal abnormality is evident. The conus medul lorna is normal in signal and terminates at an appropriate level. The visualized extraspinal soft ti ssues appear unremarkable. There is no significant central canal or foraminal narrowing apparent. Mild bilateral facet arthriti s at L4-5 and L5-S1. IMPRESSION: 1. No evidence for significant central canal or foraminal narrowing. 2. Lower lumbar spine facet arthritis. POS: [facility]
== END 2018-07-04 11:54 | disposition home or self-care (01) ==
LOC: BICMRI 11:53
PROVIDERS: ATTEND Family Medicine
DX: M54.16 Radiculopathy, lumbar region (principal); M46.96 Unspecified inflammatory spondylopathy, lumbar region
CPT/HCPCS: 72148

== ENCOUNTER 2020-05-04 09:03 | Outpatient (CLI) | payer BC ==
[2020-05-04 10:31] LABS: #Basophils 0.1 10x3/uL (0.0-0.2); #Eosinphils 0.3 10x3/uL (0.0-0.5); #Monocytes 0.7 10x3/uL (0.0-1.1); #Neutrophils 6.1 10x3/uL (1.5-8.4); %Eosinophils 2.9 % (0.0-6.0); %Lymphocytes 29.1 % (18.0-47.0); %Monocytes 6.7 % (0.0-10.0); %Neutrophils 59.9 % (40.0-75.0); Hemoglobin 11.8 g/dL (12.0-15.5); Mean Corpuscular HGB CONC 30.3 g/dL (32.0-36.0); Mean Corpuscular Hemoglobin 25.1 pg (27.0-33.0); Mean Corpuscular Volume 82.6 fl (81.6-98.3); Platelet Count 252 10x3/uL (150-450); RBC Distribution Width 16.6 % (11.5-14.5); Red Blood Cell (RBC) Count 4.71 10x6/uL (3.90-5.03); White Blood Cell (WBC) Count 10.1 10x3/uL (3.5-10.5)
[2020-05-04 22:41] LABS: SARS-CoV-2 PCR by NAA Not Detected (NotDetected)
== END 2020-05-04 09:04 | disposition home or self-care (01) ==
LOC: LABBT 09:03
PROVIDERS: ATTEND Orthopaedic Surgery
DX: Z01.818 Encounter for other preprocedural examination (principal); Z20.822 Contact with and (suspected) exposure to COVID-19
CPT/HCPCS: 85025; 87635; 93005; 93010; U0003; U0005

== ENCOUNTER 2020-05-07 06:05 | Day surgery (SDC) | payer BC ==
[2020-05-06 11:45] VITALS: BMI 35.6
[2020-05-07] MEDS ORDERED: Lidocaine 1% w/Epinephrine 1:100K 20 ML VIAL ONE (07:56)
[2020-05-07] MEDS ORDERED: Fentanyl 100 MCG/2 ML VIAL ONE ×2 (08:28→10:04)
[2020-05-07] MEDS ORDERED: Lidocaine 1% PF 5 ML VIAL ONE (08:40)
[2020-05-07] MEDS ORDERED: PROPOFOL 200 MG/20 ML VIAL ONE (08:40)
[2020-05-07] MEDS ORDERED: Dexamethasone 20 MG/5 ML VIAL ONE (08:40)
[2020-05-07] MEDS ORDERED: Ondansetron PF 4 MG/2 ML Vial ONE (08:40)
[2020-05-07] MEDS ORDERED: PHENYLEPHRINE-NS 100 MCG/ML 10 ML SYRINGE ONE (08:40)
== END 2020-05-07 11:53 | disposition home or self-care (01) ==
LOC: SDC 06:05
PROVIDERS: ATTEND Orthopaedic Surgery
PROC: 01N50ZZ Release Median Nerve, Open Approach (ICD-10-PCS; principal; 2020-05-07)
PROC: 01N40ZZ Release Ulnar Nerve, Open Approach (ICD-10-PCS; principal; 2020-05-07)
DX: G56.03 Carpal tunnel syndrome, bilateral upper limbs (principal); G56.23 Lesion of ulnar nerve, bilateral upper limbs; M65.341 Trigger finger, right ring finger; M65.342 Trigger finger, left ring finger; F17.210 Nicotine dependence, cigarettes, uncomplicated; Z79.82 Long term (current) use of aspirin; Z79.899 Other long term (current) drug therapy; Z88.5 Allergy status to narcotic agent; Z91.040 Latex allergy status
CPT/HCPCS: J0690; J1100; J2405; J2704; J3010

== ENCOUNTER 2021-03-16 13:27 | Outpatient (CLI) | payer BC | END 2021-03-16 13:28 | disposition home or self-care (01) | LOC: BICMAMMO 13:27 | PROVIDERS: ATTEND Family Medicine | DX: Z12.31 Encounter for screening mammogram for malignant neoplasm of breast (principal); N63.20 Unspecified lump in the left breast, unspecified quadrant; N64.89 Other specified disorders of breast; Z80.3 Family history of malignant neoplasm of breast | CPT/HCPCS: 77063; 77067 ==

== ENCOUNTER 2021-04-06 13:36 | Outpatient (CLI) | payer BC | END 2021-04-06 13:37 | disposition home or self-care (01) | LOC: BICMAMMO 13:36 | PROVIDERS: ATTEND Family Medicine | DX: R92.8 Other abnormal and inconclusive findings on diagnostic imaging of breast (principal); N63.25 Unspecified lump in the left breast, overlapping quadrants | CPT/HCPCS: G0279 ==

== ENCOUNTER → 2021-04-07 | Day surgery (SDC) | payer BC | LOC: BICULT 12:21 | PROVIDERS: ATTEND Family Medicine | PROC: 0H9U3ZX Drainage of Left Breast, Percutaneous Approach, Diagnostic (ICD-10-PCS; principal; 2021-04-07) | DX: N63.25 Unspecified lump in the left breast, overlapping quadrants (principal); Z88.5 Allergy status to narcotic agent; Z91.040 Latex allergy status | CPT/HCPCS: 19083; 88305 ==

== ENCOUNTER 2022-01-22 16:41 | Emergency (ER) | payer BC, SELFPAY ==
[2022-01-22 17:24] LABS: #Basophils 0.1 thou/uL (0.0-0.2); #Eosinphils 0.3 thou/uL (0.0-0.7); #Lymphocytes 3.7 thou/uL (1.20-3.40); #Monocytes 0.8 thou/uL (0.11-0.59); #Neutrophils 7.3 thou/uL (1.40-6.50); %Basophils 0.5 % (0.0-1.0); %Eosinophils 2.8 % (0.0-10.0); %Lymphocytes 30.4 % (21.0-51.0); %Monocytes 6.8 % (0.0-10.0); %Neutrophils 59.5 % (42.0-75.0); Mean Corpuscular HGB CONC 32.4 g/dL (32.0-36.0); Mean Corpuscular Hemoglobin 26.6 pg (27.0-31.0); Mean Corpuscular Volume 82.2 fl (78.0-98.0); Platelet Count 274 10x3/uL (130-400); RBC Distribution Width 15.9 % (11.5-14.5); Red Blood Cell (RBC) Count 4.87 mill/uL (4.20-5.40); White Blood Cell (WBC) Count 12.2 10x3/uL (4.8-10.8)
[2022-01-22 17:45] LABS: ALT (SGPT) 12 U/L (8-55); AST (SGOT) 10 U/L (5-34); Alkaline Phosphatase 76 U/L (40-110); Anion Gap 14 mmol/L (10-20); BUN (Urea Nitrogen) 8 mg/dL (7.0-18.7); Bilirubin, Total Less than 0.2 mg/dL (0.2-1.2); Calc. Creatinine Clearance 0 mL/min (70-130); Calcium 9.4 mg/dL (7.8-10.44); Carbon Dioxide 22 mmol/L (22-29); Chloride 109 mmol/L (98-107); Estimated GFR 78; Globulin 2.9 g/dL (2.4-3.5); Glucose 96 mg/dL (70-105); Lipase 28 U/L (8-78); Potassium 3.8 mmol/L (3.5-5.1); Protein, Total 6.9 g/dL (6.0-8.3); Sodium 141 mmol/L (136-145)
== END 2022-01-22 19:49 | disposition home or self-care (01) ==
LOC: ERS 16:41
DX: R00.2 Palpitations (principal); E78.00 Pure hypercholesterolemia, unspecified; E66.9 Obesity, unspecified; F17.210 Nicotine dependence, cigarettes, uncomplicated
CPT/HCPCS: 36415; 71045; 80053; 83690; 84443; 84484; 85025; 85379; 93005; 96360